=== PATIENT | female | born 1950 | race Caucasian/White ===

== ENCOUNTER 2023-05-09 06:00 | Day surgery (SDC) | payer MEDICARE, BC ==
[~2023-05-09 06:00] MED LIST: Lactated Ringers 1,000 ML IV SCH; Sodium Chloride 0.9% 10 ML Syringe FLUSH PRN; Sodium Chloride 0.9% 10 ML Syringe FLUSH SCH
[2023-05-09] MEDS ORDERED: Lidocaine 1% 10 ML MDV ONE (06:04)
[2023-05-09] MEDS ORDERED: Bupivacaine 0.25% 10 ML SDV ONE (06:04)
[2023-05-09] MEDS ORDERED: Propofol 200 MG/20 ML SDV ONE ×2 (06:15→06:16)
[2023-05-09] MEDS ORDERED: Lidocaine 1% 2 ML ONE (06:15)
[2023-05-09] MEDS ORDERED: fentaNYL 100 MCG/2 ML SDV ONE (06:15)
[2023-05-09] MEDS ORDERED: Midazolam 1 MG/ML 2 ML SDV ONE (06:15)
[2023-05-09] MEDS ORDERED: ceFAZolin 2 GM Vial ONE (06:33)
[2023-05-09] MEDS ORDERED: Ondansetron 4 MG/2 ML SDV IVPUSH PRN (06:50)
== END 2023-05-09 09:17 | disposition home or self-care (01) ==
LOC: JD.SDS 06:00
PROVIDERS: ATTEND Orthopaedic Surgery
DX: G56.11 Other lesions of median nerve, right upper limb (principal); G56.00 Carpal tunnel syndrome, unspecified upper limb; G25.81 Restless legs syndrome; E11.9 Type 2 diabetes mellitus without complications; I10 Essential (primary) hypertension; K21.9 Gastro-esophageal reflux disease without esophagitis; E03.9 Hypothyroidism, unspecified; E78.00 Pure hypercholesterolemia, unspecified; Z87.891 Personal history of nicotine dependence; Z79.82 Long term (current) use of aspirin; Z79.84 Long term (current) use of oral hypoglycemic drugs; Z79.899 Other long term (current) drug therapy
CPT/HCPCS: 64721; J0690; J2250; J2704; J3010; J3490; J7120; 01810; 99100

== ENCOUNTER 2024-08-14 07:40 | Day surgery (SDC) | payer MEDICARE, BC ==
[2024-08-14] MEDS: Lactated Ringers 1,000 ML IV SCH (08:00)
[2024-08-14] MEDS ORDERED: Midazolam 1 MG/ML 2 ML SDV ONE (08:09)
[2024-08-14] MEDS ORDERED: Propofol 200 MG/20 ML SDV ONE (08:10)
[2024-08-14] MEDS ORDERED: Lidocaine 1% 4 ML ONE (08:11)
== END 2024-08-14 09:46 | disposition home or self-care (01) ==
LOC: JD.SDS 07:40
PROVIDERS: ATTEND Surgery
DX: Z12.11 Encounter for screening for malignant neoplasm of colon (principal); D12.0 Benign neoplasm of cecum; Z80.0 Family history of malignant neoplasm of digestive organs; I10 Essential (primary) hypertension; E11.9 Type 2 diabetes mellitus without complications; E78.00 Pure hypercholesterolemia, unspecified; K21.9 Gastro-esophageal reflux disease without esophagitis; E03.9 Hypothyroidism, unspecified; Z79.84 Long term (current) use of oral hypoglycemic drugs; Z79.82 Long term (current) use of aspirin; Z79.899 Other long term (current) drug therapy
CPT/HCPCS: 45380; 82947; J2003; J2250; J2704; J7120